=== PATIENT | male | born 1940 | race Caucasian/White ===

== ENCOUNTER 2024-03-09 11:22 | Day surgery (SDC) | payer MEDICARE, OTHER, SELFPAY ==
--- NOTE | 2024-03-09 10:25 | W.ICD.CONTRA ---
Post ICD/PROMOTIONAL MODEL-D
-
History of ND?: No
LV Function
Left ventricular function study result?: Ejection Fraction </= 35%
ACEI/ARB/ARNI
Patient already on ACEI/ARB/ARNI: Yes
Beta-Philippe
Patient already on Beta Philippe: Yes
[2024-03-09 11:54] LABS: Hematocrit 48.4 % (39.0-52.0); Hemoglobin 16.4 g/dL (13.0-18.0); Mean Corp Hgb Conc. 33.9 g/dL (33.0-37.0); Mean Corpuscular Hgb 30.7 pg (27.0-31.0); Mean Corpuscular Volume 90.5 fL (80.0-94.0); Mean Platelet Volume 9.8 fL (7.4-10.4); Platelet Count 213 10^3/uL (130-400); Red Blood Cell Count 5.35 10^6/uL (4.70-6.10); Red Cell Dist. Width 13.3 % (11.5-14.5); White Blood Cell Count 7.9 10^3/uL (4.8-10.8)
[2024-03-09 11:56] VITALS: BP 154/86
--- NOTE | 2024-03-09 11:59 | HP.FOC2 ---
Focused History & Physical
Chief Complaint
HPI:
PCP: Haydee Tafoya DO
CDY: Horace Espinosa MD
Chief Complaint: Bi-V ICD at [facility]
HPI / Indication for Planned Procedure:
84 y/o, PMH sig for NICM, HFrEF 30-35%, Bi-V ICD upgrade 2018. Device now at [facility].
Presents for generator change.
Relevant Past Medical History: Hypertension and Other (HLD, NICM, Chronic systolic HFrEF 30-35%, LBBB, SSS/pacer dependent, VT w/prior ablation, drug induced gynecomastia, GERD/HH, acute pancreatitis, C-Spine stenosis, Sciatica)
Relevant Social History: Negative (never smoker) and ETOH (daily wine with dinner)
Relevant Family History: Positive for (DE, CVA, HTN)
Relevant Past Surgical History: Positive for (PPM 2008 with Bi-V ICD upgrade (2018), PVC ablation (2007), lap dede, TURP)
Review of Systems
Review of Pertinent Systems: All Systems Negative
Medication
See Medication form for detailed medications: Yes
Medication List (including Herbals & OTC):
Home Medications
�Medication �Instructions �Recorded
aspirin 81 mg tablet,delayed 81 mg PO DAILY 06/29/09
release
losartan 50 mg tablet 50 mg PO BID 06/29/09
metoprolol succinate 25 mg 25 mg PO BID 06/29/09
tablet,extended release 24 hr
amlodipine 10 mg tablet 2.5 mg PO DAILY 12/23/17
ibuprofen 200 mg capsule 200 mg PO Q6HPRN PRN pain 12/23/17
omeprazole 40 mg capsule,delayed 40 mg PO DAILY 12/23/17
release
simvastatin 20 mg tablet 20 mg PO QPM 12/23/17
dapagliflozin propanediol 10 mg 10 mg PO DAILY 03/09/24
tablet (Farxiga)
gabapentin 900 mg tablet,extended 900 mg PO QPM 03/09/24
release 24 hr
sildenafil 100 mg tablet 100 mg PO DAILY PRN ED 03/09/24
Medications Reviewed: Yes
Allergies and Reactions
Patient has Allergies: Yes
Noted Allergies and Reactions:
Allergies
Allergy/AdvReac Type Severity Reaction Status Date / Time
eplerenone Allergy Intermediate breast Verified 03/07/24 10:01
tenderness
spironolactone Allergy Intermediate breast Verified 03/07/24 10:01
tenderness
metronidazole Allergy Unknown Unknown Verified 03/07/24 10:01
chlorzoxazone Allergy Unknown Verified 12/23/17 09:29
[From Parafon Forte]
hydrocodone bitartrate Allergy VOMITING Verified 12/23/17 09:29
[From Vicodin]
verapamil [Verapamil] Allergy BRADYCARDIA Verified 12/23/17 09:29
Pertinent Physical Exam
All Other Systems: Negative
Head/Neck: Normal
Lungs: Normal
Heart: Normal
Abdomen: Normal
Extremities: Normal
Neurological: Normal
Diagnosis / Assessment
84 y/o w/NICM, chronic systolic HFrEF, Bi-V ICD, now at [facility].
Plan / Procedure
Bi-V ICD gen change today
cefazolin preop
continue max dylan GDMT
incision check at [facility] in 2 days
followup w/Dr. Espinosa thereafter
Anesthesia/Sedation to be done by Anesthesia Provider: Yes
[2024-03-09 12:00] VITALS: BP 154/68
[2024-03-09 12:03] LABS: ALT (SGPT) 28 U/L (0-50); AST (SGOT) 35 U/L (17-59); Albumin 4.5 g/dl (3.5-5.0); Alkaline Phosphatase 42 U/L (38-126); Blood Urea Nitrogen 22 mg/dl (9-20); Calcium 9.4 mg/dl (8.4-10.2); Carbon Dioxide 29 mmol/L (22-30); Chloride 99 mmol/L (98-107); Glucose 102 mg/dl (70-99); Potassium 4.7 mmol/L (3.5-5.1); Sodium 135 mmol/L (135-145); Total Bilirubin 1.4 mg/dl (0.2-1.3); Total Protein 6.9 g/dl (6.3-8.2); eGFR > 60.00
[2024-03-09 12:06] VITALS: BMI 23.3
--- NOTE | 2024-03-09 14:17 | ITS.CL.ICD ---
Research Editor - ICD
Implantable Cardioverter Defibrillator
Procedure Report:
BiV / ICD GENERATOR REMOVAL / IMPLANT REPORT
Date of Procedure: March 09, 2024
Primary Care Physician: Dr. Haydee Tafoya
Primary Eyeglass Lens Grinder: Myself
PROCEDURES:
1. Removal of BiV / ICD Generator
2. BiV / ICD Generator Implant
INDICATION FOR PROCEDURE:
1. ICD at [facility]
2. Current CHF Class 1 and patient is on guideline directed medical therapy at maximal tolerated dose for greater 3 months
3. Diagnosis of CHF initially made over 9 months ago
4. Life expectancy is greater than one year
5. Primary prevention at initial implant
6. Primary prevention at this generator change
7. Explanted device has delivered appropriate therapy: no
HISTORY: The patient is an 84-year-old man with a past medical history significant for a nonischemic cardiomyopathy status post BiV ICD placement and hypertension who presents for battery generator change due to battery at [facility]. All lead data is
stable. He is pacemaker dependent in the ventricle.
ANTIBIOTIC: Ancef 2 g IV
SEDATION: Conscious sedation per anesthesia staff
DESCRIPTION OF PROCEDURE: 'Time-out' was called and confirmed. The patient was prepped and draped in sterile fashion. Lidocaine with epinephrine was used for local anesthesia. An incision was made along the previous incision and the device and
leads were carefully dissected from the pocket. Hemostasis was obtained with electrocautery. The leads were from the device header and tested using an external analyzer. The pocket was liberally irrigated with antibiotic solution. Once
testing (see below) showed adequate and stable function, the leads were connected to the generator header and the leads and generator were placed within the pocket. The pocket was closed in the typical fashion.
EXPLANTED ICD: Medtronic model number [id number] serial number [id number]
IMPLANTS:
BiV / ICD: Medtronic Model: [id number], SN: [id number], Left Pectoral
EXISTING LEADS:
RA lead Medtronic 5076/52, SN: [id number] implanted: 07/02/2009
RV lead Medtronic 6935M/62, SN: [id number] implanted: 12/23/2017
LV lead Medtronic 4298/88, SN: [id number] Implanted: 12/23/2017
DEVICE TESTING
Sensing: RA 1.5 mV, RV 8.3 mV on PVC
Capture: RA 0.5 V@ 0.4 ms, RV 0.75 V@ 0.4 ms, LV 2.5 V@ 0.4ms (LV2>coil)
Ohms: RA 456, RV 399, LV 760
FINAL PROGRAMMING:
Conner Pacing: DDDR 80-130 ppm
Tachy parameters:
VF: 188 bpm, ATP while charging, Shock
VT: 150 bpm, Monitor
COMPLICATIONS: None
CONCLUSIONS:
1. Explant of BiV ICD at [facility]
2. Successful implant of BiV ICD generator.
3. In-office wound check in 1 week and device check in 10 days.
Copy to: Dr. Haydee Tafoya
[2024-03-09 15:55] VITALS: BP 165/75
[2024-03-09 15:59] VITALS: BP 151/77
[2024-03-09 16:05] VITALS: BP 163/67
[2024-03-09 16:19] VITALS: BP 168/77
== END 2024-03-09 16:55 | disposition home or self-care (01) ==
LOC: CATH 11:22
PROVIDERS: ATTENDING PHYSICIAN Internal Medicine Interventional Cardiology; FAMILY PHYSICIAN Family Medicine
DX: Z45.02 Encounter for adjustment and management of automatic implantable cardiac defibrillator (principal); I42.8 Other cardiomyopathies; I11.0 Hypertensive heart disease with heart failure; I50.22 Chronic systolic (congestive) heart failure; I49.5 Sick sinus syndrome; I44.7 Left bundle-branch block, unspecified; I47.20 Ventricular tachycardia, unspecified; K21.9 Gastro-esophageal reflux disease without esophagitis; N62 Hypertrophy of breast; M48.02 Spinal stenosis, cervical region; M54.30 Sciatica, unspecified side; Z79.82 Long term (current) use of aspirin; Z79.84 Long term (current) use of oral hypoglycemic drugs; Z79.899 Other long term (current) drug therapy
CPT/HCPCS: 33264; 80053; 85027; C1882